=== PATIENT | male | born 1940 | race Caucasian/White ===

== ENCOUNTER 2017-06-13 05:28 | Day surgery (SDC) | payer OTHER ==
[~2017-06-13] VITALS: Ht 172.7 cm; Wt 86.2 kg
--- NOTE | ~2017-06-13 | S ---
[facility] [place] [address] SURGICAL PATH RPT PROCEDURE Name: TWYLA BARGER Room #: DEP [facility].#: [id number] Admission: 06/13/17 Date of : 36 Discharge: 06/13/17 Report #: [id number] Path Case #: [id number] PATHOLOGY REPORT COLLECTION DATE: 06/13/2017 RECEIVED DATE: 06/13/2017 SUBMITTING PHYS: Dr. Juan Arenas OTHER PHYS: Dr. Jame Francisco SPECIMEN(S) RECEIVED: A.Left breast mass B.Left chest wall mass * * * * * * * * * * * * FINAL DIAGNOSIS: A. Breast, left breast mass, excisional biopsy: - Predominantly mature adipose tissue with unremarkable intervening breast ducts, clinically gynecomastia. - Negative for hyperplasia or malignancy. B. Lymph nodes (2) and adipose tissue, "left chest wall mass", excision: - Two reactive lymph nodes. - Mature adipose tissue compatible with lipoma. (IUV:gabbie; 06/16/2017) PATHOLOGIST: Tanya Martínez M.D. REPORT ELECTRONICALLY SIGNED BY: Tanya Martínez M.D. DATE/TIME: 06/17/2017 12:16 * * * * * * * * * * * * GROSS PATHOLOGY: A. Received in formalin labeled "Twyla Barger, left breast mass" and consists of 2 soft, resilient, lobulated and yellow orange fragments of fat measuring 3.2 x 2.0 x 1.5 cm and is 5.5 x 4.6 x 2.7 cm. The smaller fragment is inked blue and the larger black. Sectioning the smaller fragment reveals glistening, lobulated and bright yellow orange cut surfaces. The larger serially sectioned. The cut surfaces are glistening and yellow orange. There are vague strands of white stroma extending throughout the larger fragment. The cold ischemic time is 2 minutes. The formalin fixation time is 9 hours and 24 minutes. Dado Operator sections are submitted A1-A4. A1 small fragment A2-A4 large fragment Additional sections are submitted in cassettes A5-A7, A5 smaller fragment, A6-A7 larger fragment [address] [address] SURGICAL PATH RPT PROCEDURE Name: TWYLA BARGER Ayaan Room #: [facility]..#: [id number] Admission: 06/13/17 Date of : 36 Discharge: 06/13/17 Report #: [id number] Path Case #: [id number] (HUGH; 06/16/2017) B. Received in formalin labeled "Twyla Barger, left chest wall mass and consists of 4 glistening, yellow orange and lobulated fragments of adipose tissue ranging in size from 2.0 cm-7.0 cm and aggregate to 6.7 x 6.5 x 3.2 cm. The tissue is inked black. Sectioning reveals bright yellow orange and lobulated parenchyma. Dado Operator sections are submitted B1-B6. B1-B3 smaller fragments B4-B6 larger fragments (HUGH; 06/13/2017) CLINICAL HISTORY: Not provided INITIAL CPT CODE(S): A; 01690 B; 15979 Professional services performed by [facility] at [facility] [address], [place] [address] Technical services performed by [facility] at [address] [place] [address], [address], [place] [address]. [facility] [address] [place] [address] PHONE: [phone] DIRECTOR: Asaf Brooks M.D. * * * END OF REPORT * * *
--- NOTE | ~2017-06-13 | O ---
[facility] [place] [address] OPERATIVE REPORT Name: TWYLA BARGER Room #: DEP [facility].#: [id number] Admission: 06/13/17 Attend Phys: Juan Arenas MD Discharge: 06/13/17 Date of : 36 Report #: [id number] THIS REPORT FOR: //name// CC: Juan Francisco MD DATE OF SERVICE: 06/13/2017 PREOPERATIVE DIAGNOSES: 1. Painful left breast mass. 2. Painful left chest mass. 3. Positive family history of breast cancer. POSTOPERATIVE DIAGNOSES: 1. Left gynecomastia, symptomatic. 2. Left painful chest nodule. Possible tail of breast. PROCEDURES PERFORMED: 1. Excision of left breast mass. 2. Excisional biopsy of left chest tender mass. ANESTHESIA: General. SURGEON: Juan Arenas M.D. COMPLICATIONS: None. ESTIMATED BLOOD LOSS: 10 mL. PROCEDURE NOTE: With the patient under general anesthesia, timeout was performed. Left breast and chest were prepped and draped in a sterile fashion. The lumps were marked preoperatively. Timeout was performed. The patient did receive IV antibiotics. A 0.25% Marcaine was used to anesthetize the skin and the subcutaneous tissue. Curvilinear incision was made in the 12 to 3 o'clock position. This was fairly close to the edge of the areola. There was a pretty dominant dense breast tissue here. This was identified and dissected. The skin and subcutaneous tissue were preserved. The breast tissue was excised. This is about a 3-cm mass. There was dense fibrous breast tissue identified. No tumor identified. This was removed. The inferior aspect of the cavity was smoothed out by removing a wedge of tissue inferiorly. Cautery was used for hemostasis. The left chest was then dissected. A 4 cm incision was made in this area. This was at about the 1:30 or 2 o'clock position towards the tail of the breast. After incising through skin and subcutaneous tissue, there was thickened tissue found here. It was not a discrete mass. This was dissected from over the [address] [address] OPERATIVE REPORT Name: TWYLA BARGER Room #: [facility]..#: [id number] Admission: 06/13/17 Attend Phys: Juan Arenas MD Discharge: 06/13/17 Date of : 36 Report #: [id number] pectoralis muscle and then followed laterally into the axilla. This was the area where the patient complained of fairly significant pain and tenderness. This specimen was sent to pathology labeled separately; one as labeled left chest and the other was labeled left breast. Cautery was used for hemostasis. Subcutaneous tissue was closed with 4-0 PDS. Skin was closed with 5-0 PDS. Dermabond was applied. A 4 x 4 and OpSite used for dressing. The patient tolerated the procedure well. <ELECTRONICALLY SIGNED> By: Juan Arenas MD 06/19/17 [id number] Juan Arenas MD /mich
[~2017-06-13 05:28] MED LIST: ADULT LOW DOSE81 MG PO; ASPIR 8181 MG PO; ATIVAN0.5 MG PO; BYSTOLIC 5 MG5 M1 PO; CADUET 5 MG-201 EACH PO; CARDURA2 MG PO; CLONAZEPAM PO; FLOMAX0.4 MG PO; LANSOPRAZOLE30 MG PO; LEXAPRO 10 MG T10 MG PO; LOPRESSOR50 PO; LORTAB 5 MG/5001 TA1 PO; MECLIZINE HCL25 MG PO; NEURONTIN 300300 M1 PO; NORCO 5-325 TA1 EACH PO; NORVASC5 MG PO; PEPCID40 MG PO; PLAVIX 75 MG TA75 M1 PO; PROTONIX 20 MG20 M1 PO; TOPROL XL50 MG PO; VALSARTAN40 MG PO; ZYPREXA2.5 MG PO
[2017-06-13] MEDS ORDERED: NORCO 5-325 TA1 EACH PO (13:13)
== END 2017-06-13 15:00 | disposition home or self-care (01) ==
LOC: TBA 05:28 → OR 05:28
DX: N62 Hypertrophy of breast (principal); I89.9 Noninfective disorder of lymphatic vessels and lymph nodes, unspecified
CPT/HCPCS: 50010; 50101; 50386; 50417; 51301; 54118; 56525; 56526; 62110; 62900; 70005

== ENCOUNTER → 2017-10-21 | Outpatient (CLI) | payer OTHER ==
[2017-10-21 12:07] LABS: ABSOLUTE NEUTROPHILS 3.1 thou/uL (1.4-8.2); BASOPHILS 0.6 % (0.0-2.0); HEMATOCRIT 42.1 % (42.0-52.0); HEMOGLOBIN 14.5 gm/dL (14.0-18.0); LYMPHOCYTES 26.1 % (24.0-44.0); MCH 32.1 pg (26.0-34.0); MCHC 34.5 g/dL (28.0-37.0); MONOCYTES 10.2 % (1.0-8.0); PLATELET COUNT 179 thou/uL (150-400); POLYS 60.1 % (36.0-66.0); RBC 4.53 mil/uL (4.50-6.00); RDW 13.1 % (10.5-14.5); WBC 5.2 thou/uL (4.0-11.0)
[2017-10-23 23:06] LABS: ALTERNARIA <0.10 kU/L (Class 0); ASPERGILLUS IGE <0.10 kU/L (Class 0); BERMUDA GRASS <0.10 kU/L (Class 0); BOXELDER/MAPLE <0.10 kU/L (Class 0); CLADOSPORIUM <0.10 kU/L (Class 0); COCKROACH <0.10 kU/L (Class 0); COTTONWOOD <0.10 kU/L (Class 0); D. FARINAE <0.10 kU/L (Class 0); D. PTERONYSSINUS <0.10 kU/L (Class 0); DOG DANDER <0.10 kU/L (Class 0); ELM <0.10 kU/L (Class 0); IgE-ALLERGY PROFILE 18 IU/mL (0-100); MOUNTAIN CEDAR <0.10 kU/L (Class 0); MULBERRY IGE <0.10 kU/L (Class 0); NETTLE IGE <0.10 kU/L (Class 0); OAK <0.10 kU/L (Class 0); PENICILLIUM NOTATUM <0.10 kU/L (Class 0); RUSSIAN THISTLE IGE <0.10 kU/L (Class 0); SHEEP SORREL IGE <0.10 kU/L (Class 0); SHORT RAGWEED <0.10 kU/L (Class 0); TIMOTHY IGE <0.10 kU/L (Class 0); WHITE ASH IGE <0.10 kU/L (Class 0)
== END ==
LOC: RAD 11:13
PROVIDERS: Internal Medicine Pulmonary Disease
DX: R05 Cough (principal); R06.02 Shortness of breath

== ENCOUNTER → 2017-11-05 | Outpatient (CLI) | payer OTHER | LOC: CAT 11:25 | DX: J32.3 Chronic sphenoidal sinusitis (principal); J44.9 Chronic obstructive pulmonary disease, unspecified; R09.81 Nasal congestion; R91.1 Solitary pulmonary nodule ==

== ENCOUNTER → 2019-03-15 | Outpatient (CLI) | payer OTHER | LOC: RAD 09:50 | DX: R05 Cough (principal); R07.89 Other chest pain ==

== ENCOUNTER → 2019-06-17 | Outpatient (CLI) | payer OTHER | LOC: SJCVCIMAG 10:29 | DX: R94.31 Abnormal electrocardiogram [ECG] [EKG] (principal); I65.23 Occlusion and stenosis of bilateral carotid arteries; E78.00 Pure hypercholesterolemia, unspecified; I10 Essential (primary) hypertension; N28.89 Other specified disorders of kidney and ureter; J44.9 Chronic obstructive pulmonary disease, unspecified; Z78.9 Other specified health status; Z90.49 Acquired absence of other specified parts of digestive tract; Z79.84 Long term (current) use of oral hypoglycemic drugs; Z79.891 Long term (current) use of opiate analgesic; Z79.899 Other long term (current) drug therapy; Z86.73 Personal history of transient ischemic attack (TIA), and cerebral infarction without residual deficits ==

== ENCOUNTER → 2020-01-13 | Outpatient (CLI) | payer OTHER | LOC: SJCVC 09:54 → SJCVCIMAG 09:54 | PROVIDERS: ATTEND Internal Medicine Cardiovascular Disease | DX: I65.23 Occlusion and stenosis of bilateral carotid arteries (principal); R94.31 Abnormal electrocardiogram [ECG] [EKG]; I45.10 Unspecified right bundle-branch block; I44.4 Left anterior fascicular block; I25.10 Atherosclerotic heart disease of native coronary artery without angina pectoris; I10 Essential (primary) hypertension; M79.89 Other specified soft tissue disorders; Z79.899 Other long term (current) drug therapy; Z87.891 Personal history of nicotine dependence; Z86.73 Personal history of transient ischemic attack (TIA), and cerebral infarction without residual deficits ==

== ENCOUNTER → 2020-01-31 | Outpatient (CLI) | payer OTHER | LOC: SJCVCIMAG 07:40 | PROVIDERS: ATTEND Internal Medicine Cardiovascular Disease | DX: I45.10 Unspecified right bundle-branch block (principal); I49.3 Ventricular premature depolarization; E78.5 Hyperlipidemia, unspecified; I10 Essential (primary) hypertension; Z87.891 Personal history of nicotine dependence ==

== ENCOUNTER → 2020-09-19 | Outpatient (CLI) | payer OTHER | LOC: SJCVC 09:57 | PROVIDERS: ATTEND Internal Medicine Cardiovascular Disease | DX: R94.31 Abnormal electrocardiogram [ECG] [EKG] (principal); I45.10 Unspecified right bundle-branch block; I63.011 Cerebral infarction due to thrombosis of right vertebral artery; I10 Essential (primary) hypertension; E78.00 Pure hypercholesterolemia, unspecified; I65.23 Occlusion and stenosis of bilateral carotid arteries; G45.9 Transient cerebral ischemic attack, unspecified; N28.89 Other specified disorders of kidney and ureter; R00.1 Bradycardia, unspecified; J44.9 Chronic obstructive pulmonary disease, unspecified; G62.9 Polyneuropathy, unspecified; Z86.73 Personal history of transient ischemic attack (TIA), and cerebral infarction without residual deficits; Z85.46 Personal history of malignant neoplasm of prostate; Z79.899 Other long term (current) drug therapy; Z87.891 Personal history of nicotine dependence; Z88.8 Allergy status to other drugs, medicaments and biological substances; Z88.1 Allergy status to other antibiotic agents; Z88.5 Allergy status to narcotic agent ==

== ENCOUNTER → 2021-06-11 | Outpatient (CLI) | payer OTHER | LOC: CAT 07:32 | PROVIDERS: ATTEND Family Medicine | DX: R91.8 Other nonspecific abnormal finding of lung field (principal); K57.30 Diverticulosis of large intestine without perforation or abscess without bleeding; N28.89 Other specified disorders of kidney and ureter; N40.0 Benign prostatic hyperplasia without lower urinary tract symptoms; K44.9 Diaphragmatic hernia without obstruction or gangrene; N28.1 Cyst of kidney, acquired ==

== ENCOUNTER → 2021-07-03 | Outpatient (CLI) | payer OTHER | LOC: SJCVC 13:25 | PROVIDERS: ATTEND Internal Medicine Cardiovascular Disease | DX: R94.31 Abnormal electrocardiogram [ECG] [EKG] (principal); I45.2 Bifascicular block; I65.23 Occlusion and stenosis of bilateral carotid arteries; I10 Essential (primary) hypertension; E78.00 Pure hypercholesterolemia, unspecified; N28.89 Other specified disorders of kidney and ureter; J44.9 Chronic obstructive pulmonary disease, unspecified; R06.00 Dyspnea, unspecified; Z78.9 Other specified health status; Z79.899 Other long term (current) drug therapy; Z87.891 Personal history of nicotine dependence; Z88.8 Allergy status to other drugs, medicaments and biological substances; Z82.49 Family history of ischemic heart disease and other diseases of the circulatory system ==